=== PATIENT | female | born 1980 | race Asian ===

== ENCOUNTER 2016-09-30 09:24 | Day surgery (SDC) | payer OTHER ==
[2016-09-30 10:02] VITALS: BP 127/70
[2016-09-30] MEDS ORDERED: D5LR 1,000 ML IV SCH (10:15)
[2016-09-30 10:29] LABS: % BASOPHILS 0.4 % (0.0-2.0); % EOSINOPHILS 0.7 % (0.0-5.0); % MONOCYTES 5.7 % (2.0-10.0); % NEUTROPHILS 73.2 % (40.0-80.0); MEAN CELL VOLUME 91.9 fl (81-100); MEAN CORPUSCULAR HEMOGLOBIN 30.9 pg (27.0-31.0); MEAN CORPUSCULAR HGB CONC 33.6 pg (28.0-36.0); MEAN PLATELET VOLUME 8.3 fl; NEUTROPHILE ABSOLUTE 7.9 Th/cmm (1.8-8.0); RED BLOOD COUNT 3.98 Mil/cmm (3.80-5.10); RED CELL DISTRIBUTION WIDTH 12.6 % (11.5-20.0); WHITE BLOOD COUNT 10.7 Th/cmm (4.8-10.8)
[2016-09-30 10:31] LABS: HEMATOCRIT 36.6 % (35.0-45.0); HEMOGLOBIN 12.3 gm/dL (11.7-15.5)
[2016-09-30 10:32] LABS: PLATELET COUNT 219 Th/cmm (150-400)
[2016-09-30] MEDS ORDERED: Midazolam 1mg/ml 2 ml vial IV ONE (12:11)
[2016-09-30] MEDS ORDERED: Meperidine 25 mg/mL 1mL Syr IVP PRN (12:37)
[2016-09-30] MEDS ORDERED: Lactated Ringer 1,000 ML IV SCH ×2 (12:45)
--- NOTE | 2016-09-30 13:46 | Operative Report ---
PREOPERATIVE DIAGNOSIS: Dysfunctional uterine bleeding, rule out endometrial hyperplasia. POSTOPERATIVE DIAGNOSIS: Dysfunctional uterine bleeding, rule out endometrial hyperplasia. OPERATION: Fractional D and C. ANESTHESIA: General. ANESTHESIOLOGIST: Sandra Gillis M.D. RF TECHNICIAN: ____. DETAILS OF PROCEDURE: Under satisfactory general anesthesia, the patient was placed in lithotomy position. The perineum and vagina were prepped with Betadine, draped in usual manner and a weighted speculum was placed in the vagina and anterior lip of cervix was grasped with an Allis clamp and Kevorkian curette was passed into the endocervical canal, which was curetted ____ sharply. A scant amount of tissue was obtained. Now, the uterine cavity was sounded to 9 cm and endocervical canal was gradually dilated. The small size curette was passed into the cavity, which was curetted ____ sharply. A fair amount of tissue was obtained. Procedure was continued until normal tissue was obtained. The procedure terminated at this point. The patient tolerated the procedure well and transferred to the recovery room in good condition with stable vital signs. Estimated blood loss was 50 mL. JOB# [id number]
--- NOTE | 2016-10-01 14:08 | Pathology Report ---
[id number] Collection date: 09/30/2016 Surgeon: Dr. Fernandez Velez Specimen Description: 1: Endocervical biopsy 2: Endometrial biopsy. Gross Description: Part I: Received in formalin is a 0.6 cm aggregate of mucous admixed with multiple scattered gutiérrez soft tissue fragments ranging from 0.1 to 0.2 cm in greatest dimension. Totally submitted in one cassette labeled A. Gross Description: Part II: Received in formalin are multiple irregular gutiérrez soft tissue fragments admixed with blood clot, and aggregating to an area of 2.0 x 2.0 x 1.0 cm. Totally submitted in three cassettes labeled B1 to B3. Microscopic Description: Part I: The histologic sections show scattered tiny fragments of benign endocervical and ectocervical mucosa admixed with blood and mucous. Diagnosis: Part I: Benign ecto - endocervical mucosa (endocervical biopsy). Microscopic Description: Part II: The histologic sections show disrupted fragments of secretory endometrium admixed with blood clot. The secretory glands in some areas show crowding, with most of these crowded glands seen in association with hypersecretory coiled glands and stromal decidualization with abundant vacuolization and secretions. There is no evidence for nuclear stratification and no evidence for atypia. Diagnosis: Part II: Hemorrhagic fragments of disorganized secretory endometrium, consistent with the clinical impression of dysfunctional uterine bleeding (endometrial biopsy). COMMENT: There is no evidence for endometrial hyperplasia. Recommend clinical follow-up to determine if further studies are warranted. These findings are discussed with Dr. Omar Velez on 09/2016. [facility]# [id number] [facility]
== END 2016-09-30 14:45 | disposition home or self-care (01) ==
LOC: MSII 09:24
PROVIDERS: ATTEND Obstetrics & Gynecology
DX: N93.8 Other specified abnormal uterine and vaginal bleeding (principal)
CPT/HCPCS: 58120; 36415; 85025; 81025; J2704; J2250; J2001